=== PATIENT | female | born 1990 | race African-American/Black ===

== ENCOUNTER 2023-12-23 17:44 | Emergency (ER) | payer SELFPAY ==
[2023-12-23] MEDS: Ketorolac 60 MG/2 ML SDV IM ONE (18:58)
== END 2023-12-23 19:05 | disposition home or self-care (01) ==
LOC: JD.ED 17:44
DX: S39.012A Strain of muscle, fascia and tendon of lower back, initial encounter (principal); Z88.5 Allergy status to narcotic agent; X50.0XXA Overexertion from strenuous movement or load, initial encounter; Y92.89 Other specified places as the place of occurrence of the external cause; Y99.0 Civilian activity done for income or pay
CPT/HCPCS: 96372; 99283; J1885

== ENCOUNTER 2024-01-09 04:05 | Emergency (ER) | payer SELFPAY ==
[2024-01-09] MEDS: Pantoprazole 40 MG Vial IVPUSH ONE (04:50)
[2024-01-09] MEDS: Sodium Chloride 0.9% 1,000 ML IV ONE (04:50)
[2024-01-09] MEDS: Iopamidol 612 MG/ML 100 ML Bottle IVPUSH ONE (04:58)
[2024-01-09 05:21] LABS: A/G RATIO 1.1 (1-2); ANION GAP 11.6 (5-15); BILIRUBIN TOTAL 0.3 mg/dL (0.2-1.0); BUN/CREATININE RATIO 12.5 (14-18); CALCIUM 9.2 mg/dL (8.5-10.1); CREATININE 0.8 mg/dL (0.55-1.02); EST CRCL DRUG DOSING (CG) 70.5 mL/min; MAGNESIUM 1.8 mg/dL (1.8-2.4); POTASSIUM,K 3.6 mEq/L (3.5-5.1); PROTEIN TOTAL,TP 7.8 g/dl (6.4-8.2)
[2024-01-09 05:27] LABS: INR 1.03; PROTHROMBIN TIME 10.9 SECONDS (9.7-12.0)
[2024-01-09 05:40] LABS: BASOPHILS PERCENT AUTO 0.3 % (0.0-1.0); EOSINOPHILS ABSOLUTE AUTO 0.1 K/mm3 (0.0-0.4); EOSINOPHILS PERCENT AUTO 2.1 % (0.0-6.0); HEMATOCRIT 28.3 % (37.0-47.0); HEMOGLOBIN 8.6 gm/dl (12.0-16.0); IMMATURE GRAN ABSOLUTE AUTO 0.03 K/mm3 (0.00-0.05); IMMATURE GRAN PERCENT AUTO 0.5 % (0.0-0.4); LYMPHOCYTES ABSOLUTE AUTO 1.4 K/mm3 (1.0-4.8); LYMPHOCYTES PERCENT AUTO 23.1 % (24.0-44.0); MEAN CORPUSCULAR HEMOGLOBIN 18.7 pg (28.0-32.0); MEAN CORPUSCULAR HGB CONC 30.4 g/dl (32.0-36.0); MEAN CORPUSCULAR VOLUME 61.5 fl (83.0-99.0); MEAN PLATELET VOLUME 8.7 fl (9.4-12.3); MONOCYTES ABSOLUTE AUTO 0.4 K/mm3 (0.0-0.8); MONOCYTES PERCENT AUTO 6.2 % (0.0-8.0); NEUTROPHILS PERCENT AUTO 67.8 % (41.0-71.0); PLATELET COUNT,PLT 328 K/mm3 (150-400); WHITE BLOOD CELL COUNT,WBC 5.85 K/mm3 (3.9-11.3)
[2024-01-09 06:29] LABS: SLIDE REVIEW ABNORMAL SMEAR
== END 2024-01-09 07:15 | disposition home or self-care (01) ==
LOC: JD.ED 04:05
DX: K92.2 Gastrointestinal hemorrhage, unspecified (principal); K64.4 Residual hemorrhoidal skin tags; D64.9 Anemia, unspecified; Z88.5 Allergy status to narcotic agent; Z79.899 Other long term (current) drug therapy
CPT/HCPCS: 36415; 74177; 80053; 80307; 83690; 83735; 85025; 85610; 86850; 86900; 86901; 96361; 96374; 99284; J2470; J7030; Q9967

== ENCOUNTER 2024-01-27 07:13 | Day surgery (SDC) | payer SELFPAY ==
[~2024-01-27 07:13] MED LIST: HYDROmorphone 0.5 MG/0.5 ML Syringe IVPUSH PRN; Ondansetron 4 MG/2 ML SDV IVPUSH PRN; Sodium Chloride 0.9% 10 ML Syringe FLUSH PRN; Sodium Chloride 0.9% 10 ML Syringe FLUSH SCH; fentaNYL 100 MCG/2 ML SDV IVPUSH PRN
[2024-01-27] MEDS: Lactated Ringers 1,000 ML IV SCH (07:45)
[2024-01-27] MEDS ORDERED: Propofol 200 MG/20 ML SDV ONE ×4 (08:18)
[2024-01-27] MEDS ORDERED: Lidocaine 2% 5 ML SDV ONE (08:19)
== END 2024-01-27 09:53 | disposition home or self-care (01) ==
LOC: EDSEX → JD.SDS 07:13 → EDSEX 09:00 → JD.SDS 09:53
PROVIDERS: ATTEND Surgery
DX: D50.9 Iron deficiency anemia, unspecified (principal); K92.2 Gastrointestinal hemorrhage, unspecified; Z88.5 Allergy status to narcotic agent; Z79.899 Other long term (current) drug therapy
CPT/HCPCS: 43235; 45378; J2704; J3490; J7120